=== PATIENT | male | born 1955 | race Caucasian/White ===

== ENCOUNTER 2017-12-09 11:57 | Emergency (ER) | payer OTHER ==
[~2017-12-09] VITALS: Ht 185.4 cm; Wt 112.0 kg
[2017-12-09 12:03] VITALS: BP 142/75; PULSE 90; RESP 16; TEMP 97.6; O2SAT 95
[2017-12-09] MEDS ORDERED: ASPI81CH6 CHEW (12:25)
[2017-12-09] MEDS ORDERED: LISI-515 PO (12:25)
[2017-12-09] MEDS ORDERED: METO50TA PO (12:25)
[2017-12-09] MEDS ORDERED: MORPHINE SULFATE 4 MG/ML INJ IV PUSH ONE (13:15)
[2017-12-09 13:22] LABS: AUTOMATED NEUTROPHIL # 5.9 TH/MM3 (1.8-7.7); BASOPHIL # 0.1 TH/MM3 (0-0.2); BASOPHIL % 0.7 % (0.0-2.0); EOSINOPHIL # 0.3 TH/MM3 (0-0.4); HEMATOCRIT 46.6 % (39.0-51.0); LYMPH % 17.9 % (9.0-44.0); LYMPHOCYTE # 1.6 TH/MM3 (1.0-4.8); MEAN CELL VOLUME 79.2 FL (80.0-100.0); MEAN CORPUSCULAR HEMOGLOBIN 25.4 PG (27.0-34.0); MEAN CORPUSCULAR HGB CONC 32.1 % (32.0-36.0); MEAN PLATELET VOLUME 7.4 FL (7.0-11.0); MONOCYTE # 0.8 TH/MM3 (0-0.9); NEUT % 69.4 % (16.0-70.0); PLATELET COUNT 263 TH/MM3 (150-450); RED BLOOD COUNT 5.89 MIL/MM3 (4.50-5.90); RED CELL DISTRIBUTION WIDTH 13.3 % (11.6-17.2); WHITE BLOOD COUNT 8.7 TH/MM3 (4.0-11.0)
[2017-12-09 13:36] LABS: CHLORIDE 109 MEQ/L (98-107); SODIUM (NA) 141 MEQ/L (136-145)
[2017-12-09 13:38] LABS: BILIRUBIN, URINE NEG (NEG); BLOOD, URINE NEG (NEG); GLUCOSE,URINE NEG (NEG); KETONE, URINE NEG (NEG); NITRITE,URINE NEG (NEG); URINE COLOR YELLOW (YELLW/STRAW); URINE LEUKOCYTE ESTERASE NEG (NEG)
[2017-12-09 13:39] LABS: CALCIUM 8.6 MG/DL (8.5-10.1)
[2017-12-09 13:40] LABS: ALBUMIN 3.3 GM/DL (3.4-5.0); BICARBONATE 26.9 MEQ/L (21.0-32.0); BLOOD UREA NITROGEN 18 MG/DL (7-18); GLUCOSE,RANDOM 123 MG/DL (74-106)
[2017-12-09 13:43] LABS: ALT (GPT) 25 U/L (12-78); AST (GOT) 11 U/L (15-37); GLOMERULAR FILTRATION RATE 76 ML/MIN (>89)
[2017-12-09 13:44] LABS: SQUAMOUS EPITHELIAL CELL URINE 0-5 /hpf (0-5)
[2017-12-09 13:44] LABS: TOTAL BILIRUBIN ADULT 0.7 MG/DL (0.2-1.0); TOTAL PROTEIN 6.9 GM/DL (6.4-8.2)
[2017-12-09 13:46] LABS: ALKALINE PHOSPHATASE 39 U/L (45-117)
--- NOTE | 2017-12-09 14:04 | PD ---
HPI Chief Complaint: Abdominal Pain Time Seen by Provider: 12:59 Travel History International Travel<30 days: No Contact w/Intl Traveler<30days: No Traveled to known affect area: No History of Present Illness HPI 62yo M with c/o left lower abdominal pain since yesterday. Said it is getting more severe, sharp, nonradiating. Moving worsens the pain. +Fever of 101F yesterday. Denies any chest pain, sob, n/v, dysuria, hematuria. PFSH Past Medical History Hypertension: Yes Influenza Vaccination: Yes Past Surgical History Other Surgery: Yes (BACK SURGERY) Social History Alcohol Use: Yes (daily cocktail) Tobacco Use: No Substance Use: No Allergies-Medications (Allergen,Severity, Reaction): Coded Allergies: penicillin G (Unverified Allergy, Severe, 12/09/17) Reported Meds & Prescriptions Reported Meds & Active Scripts Active Reported Metoprolol Tartrate 50 Mg Tab 50 Mg PO HS Lisinopril 20 Mg Tab 20 Mg PO DAILY Aspirin Low Dose (Aspirin) 81 Mg Chew 81 Mg CHEW DAILY Review of Systems Except as stated in HPI: all other systems reviewed are Neg Physical Exam Narrative GENERAL: 62yo M in mild distress. SKIN: Focused skin assessment warm/dry. HEAD: Atraumatic. Normocephalic. EYES: Pupils equal and round. No scleral icterus. No injection or drainage. ENT: No nasal bleeding or discharge. Mucous membranes pink and moist. NECK: Trachea midline. No JVD. CARDIOVASCULAR: Regular rate and rhythm. No murmur appreciated. RESPIRATORY: No accessory muscle use. Clear to auscultation. Breath sounds equal bilaterally. GASTROINTESTINAL: Abdomen soft, +TTP LLQ. No rebound tenderness or guarding. MUSCULOSKELETAL: No obvious deformities. No clubbing. No cyanosis. No edema. NEUROLOGICAL: Awake and alert. No obvious cranial nerve deficits. Motor grossly within normal limits. Normal speech. PSYCHIATRIC: Appropriate mood and affect; insight and judgment normal. Data Data Last Documented VS Vital Signs Date Time Temp Pulse Resp B/P (MAP) Pulse Ox O2 Delivery O2 Flow Rate FiO2 12/09/17 14:25 73 18 108/64 (79) 95 Room Air 12/09/17 12:03 97.6 Orders Orders Complete Blood Count With Diff (12/09/17 13:08) Comprehensive Metabolic Panel (12/09/17 13:08) Lipase (12/09/17 13:08) Urinalysis - C+S If Indicated (12/09/17 13:08) Ct Abd/Pel W Iv Contrast(Rout) (12/09/17 13:08) Morphine Inj (Morphine Inj) (12/09/17 13:15) Iohexol 350 Inj (Omnipaque 350 Inj) (12/09/17 14:06) Ciprofloxacin (Cipro) (12/09/17 14:45) Metronidazole (Flagyl) (12/09/17 14:45) Labs Laboratory Tests Test 12/09/17 13:16 12/09/17 13:30 White Blood Count 8.7 TH/MM3 Red Blood Count 5.89 MIL/MM3 Hemoglobin 15.0 GM/DL Hematocrit 46.6 % Mean Corpuscular Volume 79.2 FL Mean Corpuscular Hemoglobin 25.4 PG Mean Corpuscular Hemoglobin Concent 32.1 % Red Cell Distribution Width 13.3 % Platelet Count 263 TH/MM3 Mean Platelet Volume 7.4 FL Neutrophils (%) (Auto) 69.4 % Lymphocytes (%) (Auto) 17.9 % Monocytes (%) (Auto) 9.0 % Eosinophils (%) (Auto) 3.0 % Basophils (%) (Auto) 0.7 % Neutrophils # (Auto) 5.9 TH/MM3 Lymphocytes # (Auto) 1.6 TH/MM3 Monocytes # (Auto) 0.8 TH/MM3 Eosinophils # (Auto) 0.3 TH/MM3 Basophils # (Auto) 0.1 TH/MM3 CBC Comment DIFF FINAL Differential Comment Blood Urea Nitrogen 18 MG/DL Creatinine 1.00 MG/DL Random Glucose 123 MG/DL Total Protein 6.9 GM/DL Albumin 3.3 GM/DL Calcium Level 8.6 MG/DL Alkaline Phosphatase 39 U/L Aspartate Amino Transf (AST/SGOT) 11 U/L Alanine Aminotransferase (ALT/SGPT) 25 U/L Total Bilirubin 0.7 MG/DL Sodium Level 141 MEQ/L Potassium Level 4.1 MEQ/L Chloride Level 109 MEQ/L Carbon Dioxide Level 26.9 MEQ/L Anion Gap 5 MEQ/L Estimat Glomerular Filtration Rate 76 ML/MIN Lipase 167 U/L Urine Collection Type CLEAN CATCH Urine Color YELLOW Urine Turbidity CLEAR Urine pH 6.0 Urine Specific [place] 1.015 Urine Protein NEG mg/dL Urine Glucose (UA) NEG mg/dL Urine Ketones NEG mg/dL Urine Occult Blood NEG Urine Nitrite NEG Urine Bilirubin NEG Urine Urobilinogen 1.0 MG/DL Urine Leukocyte Esterase NEG Urine Squamous Epithelial Cells 0-5 /hpf Microscopic Urinalysis Comment CULT NOT INDICATED Urine Collection Time 1330 MDM Medical Decision Making Medical Screen Exam Complete: Yes Emergency Medical Condition: Yes Differential Diagnosis Diverticulitis vs. nephrolithiasis vs. UTI Narrative Course 62yo M with left lower abdominal pain since yesterday. Labs reviewed, no leukocytosis. H/H normal. Lipase normal. CMP unremarkable. UA negative. CT a/p showed mild uncomplicated diverticulitis of the descending colon. Fatty liver. Nonspecific 14mm hypodensity of right hepatic lobe, probably benign. Nonspecific enlargement of prostate. Pt is well appearing and tolerating PO. Given cipro and flagyl. Will try outpatient therapy first. Pt tolerating PO. Return precautions given. Diagnosis Primary Impression: Diverticulitis Patient Instructions: General Instructions Departure Forms: Tests/Procedures Additional Instructions: Please follow up with your primary care physician in 2-3 days. Return precautions given. Med/Other Pt SpecificInfo: Prescription(s) given Scripts Metronidazole (Metronidazole) 500 Mg Tab 500 MG PO TID for Infection for 10 Days, TAB 0 Refills Prov: Ava Escobar DO 12/09/17 Ciprofloxacin (Ciprofloxacin) 500 Mg Tab 500 MG PO BID for Infection for 10 Days, #20 TAB 0 Refills Prov: Ava Escobar DO 12/09/17 Disposition: 01 DISCHARGE HOME Condition: Stable Ava Escobar DO Dec 09, 2017 14:04
[2017-12-09] MEDS ORDERED: IOHEXOL 350 MG/ML 10 ML VIAL (for RAD DIAG) IVCONTRAST ONE (14:06)
--- NOTE | 2017-12-09 14:15 | RADRPT ---
EXAM DATE: 12/09/2017 2:07 PM EDT AGE/SEX: 62 years / Male INDICATIONS: Left lower quadrant pain. CLINICAL DATA: This is the patient's initial encounter. Patient reports that signs and symptoms have been present for 1 day and indicates a pain score of 4/10. MEDICAL/SURGICAL HISTORY: Hypertension. None. ORAL CONTRAST: No oral contrast ingested. RADIATION DOSE: 20.27 CTDI (mGy) COMPARISON: No prior [place] exams available for comparison. TECHNIQUE: Multiple contiguous axial images were obtained through the abdomen and pelvis following b olus infusion of 95 ml Omnipaque 350 (iohexol) nonionic water-soluble contrast as a single exam dos e. No oral contrast ingested. Using automated exposure control and adjustment of the mA and/or kV ac cording to patient size, the radiation dose was kept as low as reasonably achievable to obtain optima l diagnostic quality images. FINDINGS: Mild diverticulitis seen at the level of the mid descending colon, for example series 2 image 53. No abscess, perforation or obstruction. The rest of the gastrointestinal tract is within normal limits. The appendix is well-visualized, normal. Liver is mild fatty infiltrated. A 14 mm hypodensity involves the right hepatic lobe, series 2 image 27, probably benign. The spleen, pancreas, adrenal glands and kidneys are within normal limits. Heterogeneous and enlarged prostate. Trace atelectasis seen of the visualized lung bases. No acute bony abnormality demonstrated. CONCLUSION: 1. Mild uncomplicated diverticulitis of the descending colon. 2. Fatty liver. 3. Nonspecific 14 mm hypodensity of the right hepatic lobe, probably benign. 4. Nonspecific heterogeneous enlargement of the prostate. Electronically signed by: Pineda Mireles MD 12/09/2017 2:14 PM EDT
[2017-12-09 14:25] VITALS: BP 108/64; PULSE 73; RESP 18; O2SAT 95
[2017-12-09] MEDS ORDERED: metroNIDAZOLE 500 MG TAB PO ONE (14:45)
[2017-12-09] MEDS ORDERED: CIPROFLOXACIN 500 MG TAB PO ONE (14:45)
[2017-12-09] MEDS ORDERED: CIPR500T2 PO (16:02)
[2017-12-09] MEDS ORDERED: METR1TAB76 PO (16:03)
[2017-12-09 16:11] VITALS: BP 128/81
== END 2017-12-09 16:12 | disposition home or self-care (01) ==
LOC: PHED 11:57
DX: K57.92 Diverticulitis of intestine, part unspecified, without perforation or abscess without bleeding (principal); K76.0 Fatty (change of) liver, not elsewhere classified; N40.0 Benign prostatic hyperplasia without lower urinary tract symptoms; I10 Essential (primary) hypertension; Z88.0 Allergy status to penicillin; Z79.82 Long term (current) use of aspirin; Z79.899 Other long term (current) drug therapy
CPT/HCPCS: 74177; 80053; 81001; 83690; 85025; 96374; 99284; J2270; Q9967